=== PATIENT | male | born 1940 | race Caucasian/White ===

== ENCOUNTER → 2018-01-28 | Outpatient (CLI) | payer MEDICARE ==
[~2018-01-28] MED LIST: ASPIRIN FOR CHI81 MG PO; ATARAX,VISTARIL50 MG PO; BACTRIM DS 8001 TA1 PO; CEPHALEXIN500 M1 PO; DAYPRO600 M1 PO; LISINOPRIL10 M1 PO; ROBAXIN750 MG PO
== END | disposition home or self-care (01) ==
LOC: RAD 09:10
DX: J44.9 Chronic obstructive pulmonary disease, unspecified (principal); R07.81 Pleurodynia; M54.6 Pain in thoracic spine; R10.30 Lower abdominal pain, unspecified

== ENCOUNTER 2018-04-29 14:50 | Inpatient (IN) | payer MEDICARE ==
[~2018-04-29] VITALS: Ht 170.2 cm; Wt 50.6 kg
[2018-04-29 14:50] VITALS: BP 132/93
[2018-04-29] MEDS ORDERED: OMEGA 3 1,0001 EACH PO (14:56)
[2018-04-29] MEDS ORDERED: B COMPLEX1 EACH PO (14:57)
[2018-04-29 15:46] LABS: BASO # 0.1 10*3/uL (0.0-0.1); BASO % 0.5 % (0.0-1.0); EOS # 0.1 10*3/uL (0.0-0.4); EOS % 0.8 % (1.0-4.0); HEMATOCRIT 43.5 % (42.0-52.0); HEMOGLOBIN 14.1 g/dl (14.0-18.0); LYMPH # 1.1 10*3/uL (1.3-4.4); LYMPH % 11.2 % (27.0-41.0); MEAN CELL VOLUME 82.9 fl (80.0-94.0); MEAN CORPUSCULAR HGB 26.9 pg (27.0-31.0); MEAN CORPUSCULAR HGB CONC 32.4 g/dl (33.0-37.0); MEAN PLATELET VOLUME 10.3 fl (9.6-12.3); MONO # 0.6 10*3/uL (0.1-1.0); MONO % 6.1 % (3.0-9.0); NEUT # 7.9 10*3/uL (2.3-7.9); PLATELET COUNT AUTOMATED 287 10*3/uL (130-400); RED BLOOD COUNT 5.25 10*6/uL (4.50-5.90); RED CELL DISTRI WIDTH 12.8 % (0-14.5); WHITE BLOOD COUNT 9.8 10*3/uL (4.8-10.8)
[2018-04-29 16:02] LABS: ALKALINE PHOSPHATASE 103 U/L (45-117); BUN 20 mg/dl (7-24); CHLORIDE 103 mmol/L (98-107); CREATININE 1.21 mg/dL (0.70-1.30); SGOT/AST 17 IU/L (3-35); SGPT/ALT 19 U/L (12-78); SODIUM 139 mmol/L (136-145); TOTAL PROTEIN 7.4 gm/dL (6.4-8.2)
[2018-04-29 16:04] LABS: TROPONIN I 0.205 ng/ml (<0.045)
[2018-04-29 16:12] VITALS: BP 116/82
[2018-04-29 16:41] VITALS: BP 150/90
[2018-04-29 16:55] VITALS: BP 160/92
[2018-04-29 18:55] LABS: ACT PARTIAL THROMBO TIME 24.3 SECONDS (20.8-31.5); INTERNATIONAL NORM RATIO 0.9 (2.0-3.5)
[2018-04-29 19:06] LABS: TROPONIN I 1.42 ng/ml (<0.045)
[2018-04-29 19:16] LABS: THYROID STIM HORMONE (HS) 1.31 uIU/ml (0.358-4.75)
[2018-04-29 20:00] VITALS: BP 158/92
[2018-04-30] VITALS: BP 111/74
[2018-04-30 04:01] VITALS: BP 122/74
[2018-04-30 05:37] LABS: ALBUMIN 3.7 gm/dl (3.1-4.5); ALKALINE PHOSPHATASE 94 U/L (45-117); BUN 18 mg/dl (7-24); CHLORIDE 103 mmol/L (98-107); CREATININE 0.97 mg/dL (0.70-1.30); POTASSIUM 3.7 mmol/L (3.5-5.1); SGOT/AST 17 IU/L (3-35); SGPT/ALT 19 U/L (12-78); SODIUM 140 mmol/L (136-145)
[2018-04-30 05:54] LABS: BASO # 0.1 10*3/uL (0.0-0.1); EOS # 0.2 10*3/uL (0.0-0.4); EOS % 2.6 % (1.0-4.0); HEMATOCRIT 41.8 % (42.0-52.0); HEMOGLOBIN 13.3 g/dl (14.0-18.0); LYMPH # 1.7 10*3/uL (1.3-4.4); MEAN CELL VOLUME 82.9 fl (80.0-94.0); MEAN CORPUSCULAR HGB 26.4 pg (27.0-31.0); MEAN CORPUSCULAR HGB CONC 31.8 g/dl (33.0-37.0); MEAN PLATELET VOLUME 10.7 fl (9.6-12.3); MONO # 0.7 10*3/uL (0.1-1.0); MONO % 9.6 % (3.0-9.0); NEUT # 4.5 10*3/uL (2.3-7.9); NEUT % 62.4 % (47.0-73.0); PLATELET COUNT AUTOMATED 285 10*3/uL (130-400); RED BLOOD COUNT 5.04 10*6/uL (4.50-5.90); RED CELL DISTRI WIDTH 12.8 % (0-14.5); WHITE BLOOD COUNT 7.3 10*3/uL (4.8-10.8)
[2018-04-30 08:00] VITALS: BP 130/84
[2018-04-30 12:00] VITALS: BP 142/94
[2018-04-30 16:00] VITALS: BP 115/95; BP 155/95
[2018-04-30 20:00] VITALS: BP 111/72
[2018-05-01] VITALS (8 sets, daily range): BP systolic 87–137; BP diastolic 53–88
[2018-05-01] MEDS ORDERED: METOPROLOL SUCC25 M2 PO (13:34)
[2018-05-01] MEDS ORDERED: LISINOPRIL5 MG PO (13:34)
[2018-05-01] MEDS ORDERED: ATORVASTATIN CA80 M1 PO (13:34)
[2018-05-01] MEDS ORDERED: CLOPIDOGREL75 MG PO (13:34)
[2018-05-02 04:20] VITALS: BP 106/67
[2018-05-02 05:55] LABS: BASO # 0.1 10*3/uL (0.0-0.1); EOS # 0.2 10*3/uL (0.0-0.4); EOS % 2.7 % (1.0-4.0); HEMATOCRIT 42.2 % (42.0-52.0); HEMOGLOBIN 13.6 g/dl (14.0-18.0); LYMPH # 1.9 10*3/uL (1.3-4.4); LYMPH % 28.1 % (27.0-41.0); MEAN CELL VOLUME 83.2 fl (80.0-94.0); MEAN CORPUSCULAR HGB 26.8 pg (27.0-31.0); MEAN CORPUSCULAR HGB CONC 32.2 g/dl (33.0-37.0); MEAN PLATELET VOLUME 10.5 fl (9.6-12.3); MONO # 0.7 10*3/uL (0.1-1.0); MONO % 9.7 % (3.0-9.0); NEUT % 58.1 % (47.0-73.0); PLATELET COUNT AUTOMATED 247 10*3/uL (130-400); RED BLOOD COUNT 5.07 10*6/uL (4.50-5.90); RED CELL DISTRI WIDTH 12.9 % (0-14.5); WHITE BLOOD COUNT 6.9 10*3/uL (4.8-10.8)
[2018-05-02 06:10] LABS: BUN 20 mg/dl (7-24); CHLORIDE 105 mmol/L (98-107); CREATININE 0.96 mg/dL (0.70-1.30); POTASSIUM 3.7 mmol/L (3.5-5.1); SODIUM 139 mmol/L (136-145)
[2018-05-02 06:23] LABS: TROPONIN I 0.147 ng/ml (<0.045)
[2018-05-02 08:00] VITALS: BP 122/74
== END 2018-05-02 08:55 | disposition short-term general hospital (02) | DRG 281 ==
LOC: ED 14:50 → ICCU 16:18 → EDHOLD 16:18 → ICCU 16:34
PROVIDERS: Family Medicine; Internal Medicine Cardiovascular Disease; Internal Medicine Hospice and Palliative Medicine
DX: I21.4 Non-ST elevation (NSTEMI) myocardial infarction (principal); Z68.1 Body mass index [BMI] 19.9 or less, adult; J44.9 Chronic obstructive pulmonary disease, unspecified; D64.9 Anemia, unspecified; D72.810 Lymphocytopenia; E78.00 Pure hypercholesterolemia, unspecified; R73.03 Prediabetes; R63.6 Underweight; R73.9 Hyperglycemia, unspecified; E53.8 Deficiency of other specified B group vitamins; E55.9 Vitamin D deficiency, unspecified; Z72.0 Tobacco use; Z71.6 Tobacco abuse counseling; Z79.82 Long term (current) use of aspirin; Z82.49 Family history of ischemic heart disease and other diseases of the circulatory system; Z80.1 Family history of malignant neoplasm of trachea, bronchus and lung

== ENCOUNTER 2020-12-29 14:50 | Observation (INO) | payer OTHER, MEDICAID ==
[2020-12-29] VITALS (7 sets, daily range): BP systolic 97–152; BP diastolic 57–120
[~2020-12-29] VITALS: Ht 170.1 cm; Wt 49.6 kg
[~2020-12-29 14:50] MED LIST changes: +ATORVASTATIN CA80 M1 PO; +B COMPLEX1 EACH PO; +CLOPIDOGREL75 MG PO; +LISINOPRIL5 MG PO; +METOPROLOL SUCC25 M2 PO; +OMEGA 3 1,0001 EACH PO
[2020-12-29 15:31] LABS: BASO # 0.1 10*3/uL (0.0-0.1); BASO % 0.7 % (0.0-1.0); EOS # 0.2 10*3/uL (0.0-0.4); EOS % 1.5 % (1.0-4.0); HEMATOCRIT 46.2 % (42.0-52.0); LYMPH # 0.9 10*3/uL (1.3-4.4); LYMPH % 7.8 % (27.0-41.0); MEAN CELL VOLUME 85.9 fl (80.0-94.0); MEAN CORPUSCULAR HGB CONC 31.4 g/dl (33.0-37.0); MEAN PLATELET VOLUME 10.4 fl (9.6-12.3); MONO % 8.1 % (3.0-9.0); NEUT # 9.5 10*3/uL (2.3-7.9); NEUT % 81.6 % (47.0-73.0); PLATELET COUNT AUTOMATED 259 10*3/uL (130-400); RED BLOOD COUNT 5.38 10*6/uL (4.50-5.90); RED CELL DISTRI WIDTH 13.6 % (0-14.5); WHITE BLOOD COUNT 11.7 10*3/uL (4.8-10.8)
[2020-12-29 15:48] LABS: ACT PARTIAL THROMBO TIME 27.9 SECONDS (20.0-32.1); ALBUMIN 4.1 gm/dl (3.1-4.5); ALKALINE PHOSPHATASE 112 U/L (45-117); BUN 12 mg/dl (7-24); CHLORIDE 101 mmol/L (98-107); CREATININE 1.19 mg/dL (0.70-1.30); POTASSIUM 4.4 mmol/L (3.5-5.1); SGOT/AST 34 IU/L (3-35); SGPT/ALT 43 U/L (12-78); SODIUM 136 mmol/L (136-145); TOTAL PROTEIN 7.7 gm/dL (6.4-8.2)
[2020-12-29 16:12] LABS: TROPONIN I < 0.015 ng/ml (<0.045)
[2020-12-30] VITALS (11 sets, daily range): BP systolic 84–153; BP diastolic 47–89
[2020-12-30 04:39] LABS: BASO % 0.5 % (0.0-1.0); EOS # 0.1 10*3/uL (0.0-0.4); HEMATOCRIT 40.8 % (42.0-52.0); LYMPH # 1.4 10*3/uL (1.3-4.4); LYMPH % 17.3 % (27.0-41.0); MEAN CELL VOLUME 84.5 fl (80.0-94.0); MEAN CORPUSCULAR HGB 26.9 pg (27.0-31.0); MEAN CORPUSCULAR HGB CONC 31.9 g/dl (33.0-37.0); MEAN PLATELET VOLUME 10.2 fl (9.6-12.3); MONO % 12.9 % (3.0-9.0); NEUT # 5.5 10*3/uL (2.3-7.9); NEUT % 67.9 % (47.0-73.0); PLATELET COUNT AUTOMATED 254 10*3/uL (130-400); RED BLOOD COUNT 4.83 10*6/uL (4.50-5.90); RED CELL DISTRI WIDTH 13.8 % (0-14.5); WHITE BLOOD COUNT 8.1 10*3/uL (4.8-10.8)
[2020-12-30 04:56] LABS: BUN 18 mg/dl (7-24); CHLORIDE 103 mmol/L (98-107); CHOLESTEROL 129 mg/dL (<200); CREATININE 1.09 mg/dL (0.70-1.30); FREE T4 1.17 ng/dl (0.76-1.46); HDL CHOLESTEROL 63 mg/dl (40-60); LDL CHOLESTEROL 45 mg/dL (9-159); POTASSIUM 4.3 mmol/L (3.5-5.1); SODIUM 137 mmol/L (136-145); TRIGLYCERIDES 104 mg/dl (<150); VLDL CHOLESTEROL 21 mg/dL (6-40)
[2020-12-30 06:38] LABS: VITAMIN D, 25-HYDROXY 33.2 ng/mL (30-100)
[2020-12-30] MEDS ORDERED: ENOXAPARIN60 MG/0.2 SC (12:35)
[2020-12-30] MEDS ORDERED: LOPRESSOR25 MG PO (12:35)
== END 2020-12-30 15:50 | disposition short-term general hospital (02) ==
LOC: ED 14:50 → EDHOLD 16:20 → 5E 12-30 09:01
PROVIDERS: Social Worker Clinical; Student in an Organized Health Care Education/Training Program; ADMIT Emergency Medicine; ATTEND Emergency Medicine
DX: R07.89 Other chest pain (principal); I48.91 Unspecified atrial fibrillation; R10.13 Epigastric pain; D72.829 Elevated white blood cell count, unspecified; D72.810 Lymphocytopenia; D72.9 Disorder of white blood cells, unspecified; R73.9 Hyperglycemia, unspecified; E78.00 Pure hypercholesterolemia, unspecified; F12.90 Cannabis use, unspecified, uncomplicated; F17.220 Nicotine dependence, chewing tobacco, uncomplicated; I25.10 Atherosclerotic heart disease of native coronary artery without angina pectoris; E78.5 Hyperlipidemia, unspecified; I10 Essential (primary) hypertension; E55.9 Vitamin D deficiency, unspecified; Z95.1 Presence of aortocoronary bypass graft; Z98.890 Other specified postprocedural states

== ENCOUNTER 2024-02-04 13:43 | Emergency (ER) | payer OTHER, MEDICAID ==
[~2024-02-04 13:43] MED LIST changes: +ENOXAPARIN60 MG/0.2 SC; +LOPRESSOR25 MG PO
[2024-02-04 13:53] VITALS: BP 142/82
== END 2024-02-04 16:41 | disposition home or self-care (01) ==
LOC: ED 13:43
DX: M70.22 Olecranon bursitis, left elbow (principal); I10 Essential (primary) hypertension; I25.2 Old myocardial infarction; F17.220 Nicotine dependence, chewing tobacco, uncomplicated; F12.90 Cannabis use, unspecified, uncomplicated; Z98.890 Other specified postprocedural states; Y93.89 Activity, other specified

== ENCOUNTER 2024-09-14 21:01 | Emergency (ER) | payer OTHER, MEDICAID ==
[~2024-09-14] VITALS: Ht 170.1 cm; Wt 49.4 kg
[2024-09-14 21:16] VITALS: BP 116/78
== END 2024-09-14 22:14 | disposition home or self-care (01) ==
LOC: ED 21:01
DX: T47.1X1A Poisoning by other antacids and anti-gastric-secretion drugs, accidental (unintentional), initial encounter (principal); T42.1X1A Poisoning by iminostilbenes, accidental (unintentional), initial encounter; R11.2 Nausea with vomiting, unspecified; E78.00 Pure hypercholesterolemia, unspecified; I10 Essential (primary) hypertension; I25.2 Old myocardial infarction; Z98.890 Other specified postprocedural states; F12.90 Cannabis use, unspecified, uncomplicated; F17.220 Nicotine dependence, chewing tobacco, uncomplicated; Y92.89 Other specified places as the place of occurrence of the external cause

== ENCOUNTER 2025-06-01 13:54 | Emergency (ER) | payer OTHER, MEDICAID ==
[~2025-06-01] VITALS: Ht 170.1 cm; Wt 49.9 kg
[2025-06-01 14:16] VITALS: BP 116/76
[2025-06-01] MEDS ORDERED: DOCUSATE SODIUM 100 MG/10 ML UDC OT ONE (14:25)
[2025-06-01] MEDS ORDERED: DOCUSATE SODIUM 100 MG/10 ML UDC ONE (14:48)
[2025-06-01] MEDS ORDERED: OFLOXACIN 10 ML10 M2 OU (15:57)
[2025-06-01] MEDS ORDERED: OFLOXACIN 0.3% 5 ML BOTTLE OT ONE ×2 (16:00→16:10)
== END 2025-06-01 16:00 | disposition home or self-care (01) ==
LOC: ED 13:54
DX: H61.22 Impacted cerumen, left ear (principal); I10 Essential (primary) hypertension; I25.2 Old myocardial infarction; I25.10 Atherosclerotic heart disease of native coronary artery without angina pectoris; E78.00 Pure hypercholesterolemia, unspecified; F17.220 Nicotine dependence, chewing tobacco, uncomplicated; Z79.899 Other long term (current) drug therapy; Z79.82 Long term (current) use of aspirin; Z95.5 Presence of coronary angioplasty implant and graft; Z98.890 Other specified postprocedural states